=== PATIENT | female | born 1965 | race American Indian/Alaskan Native ===

== ENCOUNTER 2017-02-25 07:13 | Day surgery (SDC) | payer OTHER ==
[2017-02-25] MEDS ORDERED: Lactated Ringer's 500 ML IV ONE (07:54)
[2017-02-25] MEDS ORDERED: BENZOCAINE SPR MM ONE (09:14)
[2017-02-25] MEDS ORDERED: Propofol 10 mg/ml Inj (20 ML) ONE (09:16)
[2017-02-25 10:16] VITALS: BP 115/91; PULSE 45; RESP 16; TEMP 96.9; O2SAT 100
== END 2017-02-25 13:33 | disposition home or self-care (01) ==
LOC: H.ENDO 07:13
PROVIDERS: ATTEND Internal Medicine Gastroenterology
DX: Z12.11 Encounter for screening for malignant neoplasm of colon (principal); M79.1 Myalgia; K64.9 Unspecified hemorrhoids; K57.30 Diverticulosis of large intestine without perforation or abscess without bleeding; K44.9 Diaphragmatic hernia without obstruction or gangrene; K26.9 Duodenal ulcer, unspecified as acute or chronic, without hemorrhage or perforation; K31.9 Disease of stomach and duodenum, unspecified; K29.80 Duodenitis without bleeding; R12 Heartburn

== ENCOUNTER 2017-09-04 17:01 | Emergency (ER) | payer MEDICAID, OTHER ==
[2017-09-04 17:46] VITALS: O2SAT 98
--- NOTE | 2017-09-04 18:19 | ED PDOC ---
HPI: General Adult Time Seen by Provider: 09/04/17 17:49 Chief Complaint (Nursing): Flu-like Symptoms Chief Complaint (Provider): Flu-like Symptoms History Per: Patient History/Exam Limitations: no limitations Onset/Duration Of Symptoms: Days (x2) Current Symptoms Are (Timing): Still Present Additional Complaint(s): 52 year old female presents to the ER complaining of fever, global headache, dizziness, nausea, vomiting, body aches and chills, onset yesterday morning. Denies any associated hematemesis diarrhea, cough, ear pain, or throat pain. Patient reports taking Tylenol with minimal relief. Able to tolerate liquids but no solids PO. Per , patient is otherwise acting normally. Patient's was sick last week with the flu. PMD: Dr. Mignon Lau Past Medical History Reviewed: Historical Data, Nursing Documentation, Vital Signs Vital Signs: Last Vital Signs Temp 98.9 F 09/04/17 20:51 Pulse 72 09/04/17 20:51 Resp 15 09/04/17 20:51 BP 135/78 09/04/17 20:51 Pulse Ox 98 09/04/17 20:53 - Medical History PMH: Asthma (not on meds), Fibromyalgia, HTN (not on meds) Denies: Chronic Kidney Disease - Surgical History Other surgeries: Foot surgery s/p fracture - Family History Family History: States: Unknown Family Hx - Social History Current smoker - smoking cessation education provided: Yes Alcohol: None Drugs: Denies - Home Medications Home Medications: Ambulatory Orders Medication Instructions Recorded Cyclobenzaprine [Flexeril] 5 mg PO Q12 02/25/17 Escitalopram [Lexapro] 10 mg PO DAILY 02/25/17 Esomeprazole Magnesium [Nexium] 2 cap PO DAILY 02/25/17 Meloxicam [Mobic] 15 mg PO DAILY 02/25/17 Acetaminophen [Acetaminophen 8 650 mg PO TID #21 tablet.er 09/04/17 Hour] Metoclopramide HCl [Reglan] 10 mg PO TID PRN #12 tablet 09/04/17 Oseltamivir Phosphate [Tamiflu] 75 mg PO BID #10 capsule 09/04/17 - Allergies Allergies/Adverse Reactions: Allergies Allergy/AdvReac Type Severity Reaction Status Date / Time No Known Allergies Allergy Unverified 06/05/15 17:13 Review of Systems ROS Statement: Except As Marked, All Systems Reviewed And Found Negative Constitutional: Positive for: Fever, Chills, Other (Body aches) ENT: Negative for: Ear Pain, Throat Pain Respiratory: Negative for: Cough Gastrointestinal: Positive for: Nausea, Vomiting, Abdominal Pain. Negative for : Diarrhea, Hematemesis Neurological: Positive for: Headache, Dizziness (room spinning) Physical Exam - Reviewed Nursing Documentation Reviewed: Yes Vital Signs Reviewed: Yes - Physical Exam Appears: Positive for: Non-toxic, No Acute Distress Head Exam: Positive for: ATRAUMATIC, NORMAL INSPECTION, NORMOCEPHALIC Skin: Positive for: Normal Color, Warm, Dry Eye Exam: Positive for: EOMI, Normal appearance, PERRL ENT: Positive for: Normal ENT Inspection Neck: Positive for: Normal, Painless ROM, Supple Cardiovascular/Chest: Positive for: Regular Rate, Rhythm. Negative for: Murmur Respiratory: Positive for: Normal Breath Sounds. Negative for: Accessory Muscle Use, Wheezing, Respiratory Distress Gastrointestinal/Abdominal: Positive for: Normal Exam, Soft. Negative for: Tenderness, Distended Extremity: Positive for: Normal ROM. Negative for: Pedal Edema, Deformity Neurologic/Psych: Positive for: Alert, Oriented (x3). Negative for: Motor/ Sensory Deficits - Laboratory Results Result Diagrams: 09/04/17 18:55 09/04/17 18:55 - ECG O2 Sat by Pulse Oximetry: 98 (RA) Pulse Ox Interpretation: Normal Medical Decision Making Medical Decision Making: Clinical Impression: Fever, Headache, Body aches, likely viral illness Time: 18:11 Plan: --Urine --CMP --CBC --Blood culture --Meclizine 25 mg PO --IV fluids --Pepcid 20 mg IV --Reglan 10 mg IV --Toradol 30 mg IV --Reevaluation Labs reviewed, and are grossly normal. 19:41 On reevaluation patient is resting comfortably, and reports improvement after medications given. Will give 75 mg Tamiflu in the ER and reevaluate after IV drip finishes. 20:49 On reevaluation, patient reports all symptoms are improved including resolution of dizziness and headache. Tolerating PO in the ED. Stable for discharge home. Provided with tamiflu, acetaminophen, and reglan prescriptions. Counseling was provided and all questions were answered regarding diagnosis and need for follow up with PMD. There is agreement to discharge plan. Return if symptoms persist or worsen. Scribe Attestation: Documented by Melva Johnson, acting as a scribe for Radha Salazar PA-C Provider Scribe Attestation: All medical record entries made by the Scribe were at my direction and personally dictated by me. I have reviewed the chart and agree that the record accurately reflects my personal performance of the history, physical exam, medical decision making, and the department course for this patient. I have also personally directed, reviewed, and agree with the discharge instructions and disposition. Disposition - Clinical Impression Clinical Impression: Fever, Nausea and vomiting, Influenza, Headache, Dizziness Counseled Patient/Family Regarding: Studies Performed, Diagnosis, Need For Followup, Rx Given - Disposition Referrals: Sid Crow DO [Family Provider] - Disposition: Routine/Home Disposition Time: 20:50 Condition: IMPROVED Prescriptions: Acetaminophen [Acetaminophen 8 Hour] 650 mg PO TID #21 tablet.er Metoclopramide HCl [Reglan] 10 mg PO TID PRN #12 tablet PRN Reason: headache, dizziness, nausea Oseltamivir Phosphate [Tamiflu] 75 mg PO BID #10 capsule Instructions: Flu, Headache, Adult, Nausea and Vomiting, Adult, Dizziness, Nonvertigo, (DC), Fever, Adult (DC) Forms: [employer] (Greenlandic) Print Language: CROATIAN - POA Present On Arrival: None
[2017-09-04] MEDS: Sodium Chloride 0.9% 1,000 ML IV SCH ×3 (19:01→20:30)
[2017-09-04 19:24] LABS: BASO # 0.1 K/uL (0.0-0.2); BASO % 1.1 % (0.0-2.0); EOS % 0.3 % (0.0-4.0); HEMOGLOBIN 15.6 g/dL (12.0-16.0); LYMPH # 2.1 K/uL (1.0-4.3); LYMPH % 36.3 % (20.0-40.0); MEAN CELL VOLUME 77.8 fl (81.0-99.0); MEAN CORPUSCULAR HEMOGLOBIN 24.6 pg (27.0-31.0); MEAN CORPUSCULAR HGB CONC 31.7 g/dL (33.0-37.0); MEAN PLATELET VOLUME 9.3 fl (7.2-11.7); MONO # 0.4 K/uL (0.0-0.8); NEUT # 3.2 K/uL (1.8-7.0); NEUT % 55.3 % (50.0-75.0); NRBC % 0.1 % (0.0-0.0); RBC 6.34 Mil/uL (3.80-5.20); RED CELL DISTRIBUTION WIDTH 15.9 % (11.5-14.5); WHITE BLOOD COUNT 5.8 K/uL (4.8-10.8)
[2017-09-04 19:33] LABS: ALB/GLOB RATIO 1.3 (1.0-2.1); ALBUMIN 4.8 g/dL (3.5-5.0); GFR AFRICAN-AMERICAN > 60; GFR NON-AFRICAN AMERICAN > 60
[2017-09-04 19:36] LABS: ALT/SGPT 27 U/L (9-52); AST/SGOT 37 U/L (14-36); BLOOD UREA NITROGEN 9 mg/dl (7-17)
[2017-09-04 20:52] VITALS: BP 135/78; PULSE 72; RESP 15; TEMP 98.9
== END 2017-09-04 20:51 | disposition home or self-care (01) ==
LOC: H.ER 17:01
DX: J11.1 Influenza due to unidentified influenza virus with other respiratory manifestations (principal); R11.2 Nausea with vomiting, unspecified; R51 Headache; R42 Dizziness and giddiness; R50.9 Fever, unspecified
CPT/HCPCS: 80053; 81025; 84703; 85025; 87040; 96374; 96375; 99284; J1885; J2765; J7040